=== PATIENT | female | born 1995 | race Two or more races ===

== ENCOUNTER 2016-07-29 09:15 | Observation (INO) | payer MEDICAID ==
[~2016-07-29 09:15] MED LIST: PREN-96 PO
== END 2016-07-29 10:40 | disposition home or self-care (01) | DRG 566 ==
LOC: LDRP 09:15
PROVIDERS: ADMIT Specialist; ATTEND Specialist
DX: O26.893 Other specified pregnancy related conditions, third trimester (principal); N89.8 Other specified noninflammatory disorders of vagina; Z3A.37 37 weeks gestation of pregnancy
CPT/HCPCS: 59025; 81002; G0378

== ENCOUNTER → 2016-08-08 | Outpatient (CLI) | payer MEDICAID | END | disposition home or self-care (01) | LOC: LAB 11:37 | PROVIDERS: ATTEND Specialist | DX: Z34.80 Encounter for supervision of other normal pregnancy, unspecified trimester (principal) | CPT/HCPCS: G0434 ==

== ENCOUNTER 2016-08-17 08:15 | Observation (INO) | payer MEDICAID ==
[2016-08-17 09:51] LABS: Urine Bilirubin Negative (Negative); Urine Blood Negative /uL (Negative); Urine Color Yellow (Yellow); Urine Glucose Normal (Normal); Urine Ketone Negative (Negative); Urine Nitrite Negative (Negative); Urine RBC 2 /hpf (0 - 4); Urine Squamous Epithelial Cell FEW /hpf (<5); Urine Urobilinogen Normal (Negative); Urine pH 7.5 (5.0-8.0)
== END 2016-08-17 10:50 | disposition home or self-care (01) | DRG 566 ==
LOC: LDRP 08:15
PROVIDERS: ADMIT Obstetrics & Gynecology; ATTEND Obstetrics & Gynecology
DX: O62.9 Abnormality of forces of labor, unspecified (principal); O48.0 Post-term pregnancy; Z3A.40 40 weeks gestation of pregnancy
CPT/HCPCS: 59025; 76818; 81001; 81002; G0378

== ENCOUNTER 2018-11-24 18:48 | Emergency (ER) | payer MEDICAID ==
[~2018-11-24] VITALS: Ht 154.9 cm; Wt 65.8 kg
[2018-11-24 19:04] VITALS: BP 127/61
[2018-11-24 19:37] LABS: Basophils # (auto) 0 uL; Basophils % (auto) 0.3 % (0.0-2.0); Eosinophils # (auto) 0 uL; Eosinophils % (auto) 0.4 % (0.0-7.0); Hematocrit 42.9 % (36.0-46.0); Hemoglobin 14.5 g/dL (12.2-16.2); Lymphocytes # (auto) 1.1 uL; Lymphocytes % (auto) 9.4 % (10.0-50.0); Mean Corpuscular Hemoglobin 29.9 pg (28.0-32.0); Mean Corpuscular Hgb Conc. 33.9 g/dL (32.0-36.0); Mean Corpuscular Volume 88.2 fL (80.0-100.0); Monocytes # (auto) 0.4 uL; Monocytes % (auto) 3.6 % (0.0-12.0); Neutrophils # (auto) 9.8 uL; Neutrophils % (auto) 86.3 % (37.0-80.0); Platelet Count (auto) 284 10^3/uL (140-450); Red Blood Cells 4.86 10^6/uL (4.0-5.20); White Blood Cell 11.4 10^3/uL (4.4-10.8)
[2018-11-24 19:56] LABS: Albumin 3.4 g/dL (3.4-5.0); BUN/Creatinine Ratio 13.2; Calcium 8.4 mg/dL (8.5-10.1); Potassium 3.5 mmol/L (3.5-5.1)
[2018-11-24 19:59] LABS: Bilirubin, Total 0.4 mg/dL (0.2-1.0); Total Protein 7.6 g/dL (6.4-8.2)
[2018-11-24 20:32] LABS: Urine Bacteria NONE SEEN /hpf (None Seen); Urine Blood Negative /uL (Negative); Urine Mucus FEW (None Seen); Urine Specific Gravity 1.032 (1.001-1.035); Urine WBC 5 /hpf (0 - 5)
== END 2018-11-24 23:54 | disposition left against medical advice (07) ==
LOC: ER 18:48
DX: O46.91 Antepartum hemorrhage, unspecified, first trimester (principal); Z3A.10 10 weeks gestation of pregnancy; Z53.21 Procedure and treatment not carried out due to patient leaving prior to being seen by health care provider
CPT/HCPCS: 36415; 76801; 80053; 81001; 84702; 85025

== ENCOUNTER 2019-05-15 11:23 | Observation (INO) | payer MEDICAID | END 2019-05-15 12:43 | disposition home or self-care (01) | DRG 566 | LOC: LDRP 11:23 | PROVIDERS: ADMIT Specialist; ATTEND Specialist | DX: O36.8190 Decreased fetal movements, unspecified trimester, not applicable or unspecified (principal); Z3A.35 35 weeks gestation of pregnancy | CPT/HCPCS: 59025; 81002; G0378 ==

== ENCOUNTER 2019-06-15 00:10 | Inpatient (IN) | payer MEDICAID ==
[~2019-06-15] VITALS: Ht 162.6 cm; Wt 74.8 kg
[2019-06-15] MEDS ORDERED: LACT. RINGERS/OXYTOCIN 20UNITS 1,000 ML IV SCH ×2 (00:57→11:25)
[2019-06-15] MEDS ORDERED: METHYLERGONOVINE MALEATE 0.2 MG/ML AMP IM PRN (01:00)
[2019-06-15] MEDS ORDERED: PHISODERM TOP SOLN 240ML BTL TOP PRN (01:00)
[2019-06-15] MEDS ORDERED: LIDOCAINE 2%HCL (LOCAL ANESTH.) INJ 20ML MDV ID ONE (01:00)
[2019-06-15] MEDS ORDERED: NALBUPHINE HCL 10 MG/1ml INJECTION IV PRN (01:00)
[2019-06-15 01:18] LABS: Urine Bacteria NONE SEEN /hpf (None Seen); Urine Blood Negative /uL (Negative); Urine Hyaline Cast FEW /lpf (0 - 2); Urine Mucus FEW (None Seen); Urine Specific Gravity 1.016 (1.001-1.035); Urine WBC 12 /hpf (0 - 5)
[2019-06-15 01:35] LABS: Basophils # (auto) 0 uL; Basophils % (auto) 0.4 % (0.0-2.0); Eosinophils # (auto) 0 uL; Eosinophils % (auto) 0.6 % (0.0-7.0); Hematocrit 38.7 % (36.0-46.0); Hemoglobin 13.3 g/dL (12.2-16.2); Lymphocytes # (auto) 1.8 uL; Lymphocytes % (auto) 23.9 % (10.0-50.0); Mean Corpuscular Hemoglobin 29.9 pg (28.0-32.0); Mean Corpuscular Hgb Conc. 34.4 g/dL (32.0-36.0); Monocytes # (auto) 0.5 uL; Monocytes % (auto) 6.6 % (0.0-12.0); Neutrophils # (auto) 5.3 uL; Neutrophils % (auto) 68.5 % (37.0-80.0); Nucleated Red Blood Cells % 0.1 %; Platelet Count (auto) 203 10^3/uL (140-450); Red Blood Cells 4.46 10^6/uL (4.0-5.20); Red Cell Distribution Width 13.9 % (11.8-14.3); White Blood Cell 7.7 10^3/uL (4.4-10.8)
[2019-06-15 01:35] LABS: Alcohol, Urine < 3.0 mg/dL (0-5); Amphetamine Screen, Urine NEGATIVE (NEGATIVE); Barbiturate Scree,Urine NEGATIVE (NEGATIVE); Benzodiazephine Screen, Urine NEGATIVE (NEGATIVE); Cannabinoid Screen, Urine NEGATIVE (NEGATIVE); Cocaine Screen, Urine NEGATIVE (NEGATIVE); Opiate Scree,Urine NEGATIVE (NEGATIVE); Phencyclidine Screen, Urine NEGATIVE (NEGATIVE)
[2019-06-15 01:50] LABS: INR 0.91 (0.9-1.15); Partial Thromboplastin Time 25.7 sec (23.64-32.05)
[2019-06-15 02:03] LABS: Albumin 2.7 g/dL (3.4-5.0); BUN/Creatinine Ratio 15.7; Calcium 8.5 mg/dL (8.5-10.1)
[2019-06-15 02:06] LABS: Bilirubin, Total 0.3 mg/dL (0.2-1.0); Total Protein 6.8 g/dL (6.4-8.2)
[2019-06-15] MEDS ORDERED: CARBOPROST TROMETHAMINE 250 MCG/1ML VIAL IM ONE (02:37)
[2019-06-15] MEDS ORDERED: LACTATED RINGER'S 1,000 ML IV ONE (06:06)
[2019-06-15] MEDS: WITCH HAZEL-GLYCERIN PAD TOP PRN (06:11)
[2019-06-15] MEDS: DERMOPLAST 60ML BOTTLE TOP PRN (06:11)
[2019-06-15] MEDS: LACTATED RINGER'S 1,000 ML IV SCH ×3 (06:13→12:27)
[2019-06-15] MEDS ORDERED: fentaNYL W ROPIVACAINE 150 ML EPI SCH (06:15)
[2019-06-15] MEDS ORDERED: NALOXONE HCL 0.4 MG/ML VIAL IV ONE (06:15)
[2019-06-15] MEDS ORDERED: ePHEDrine SULFATE 50 MG/ML AMP IV ONE (06:15)
[2019-06-15] MEDS ORDERED: ePHEDrine SULFATE 50 MG/ML AMP ONE (06:23)
[2019-06-15] MEDS ORDERED: LIDOCAINE HCL 2 %PF INJ 10ML AMP IJ ONE ×2 (06:57→08:45)
[2019-06-15] MEDS ORDERED: TERBUTALINE SULFATE 1 MG/ML 1ML VIAL SC ONE (11:30)
[2019-06-15] MEDS ORDERED: ceFAZolin 1GM 2 GM in D5W 5% 100 ML IV ONE (15:30)
[2019-06-15] MEDS ORDERED: AMPICILLIN SOD 1 GM VL ONE ×2 (15:41→15:46)
[2019-06-15] MEDS: ACETAMINOPHEN 325 MG TAB PO PRN (15:44)
[2019-06-15] MEDS ORDERED: ACETAMINOPHEN 325 MG TAB PO PRN (16:30)
[2019-06-15 18:45] VITALS: BP 102/51
[2019-06-15] MEDS: IBUPROFEN 600 MG TAB PO PRN (20:54)
[2019-06-15] MEDS ORDERED: ceFAZolin 1GM/50ML 50 ML IV SCH (22:00)
[2019-06-15 23:00] VITALS: BP 92/51
[2019-06-16] MEDS: ceFAZolin 1GM/50ML 50 ML IV SCH ×3 (01:06→16:34)
[2019-06-16] MEDS: ACETAMINOPHEN 325 MG TAB PO PRN ×4 (01:15→20:11)
[2019-06-16 03:10] VITALS: BP 102/57
[2019-06-16 07:15] VITALS: BP 111/56
[2019-06-16] MEDS: WITCH HAZEL-GLYCERIN PAD TOP PRN (09:23)
[2019-06-16] MEDS: DERMOPLAST 60ML BOTTLE TOP PRN (09:23)
[2019-06-16] MEDS ORDERED: DOCUSATE CALCIUM 240 MG CAP PO SCH (10:00)
[2019-06-16 11:20] VITALS: BP 108/59
[2019-06-16 15:13] VITALS: BP 107/55
[2019-06-16 19:30] VITALS: BP 112/60
[2019-06-16 22:00] VITALS: BP 109/56
[2019-06-16] MEDS: IBUPROFEN 600 MG TAB PO PRN (23:59)
[2019-06-17 03:30] VITALS: BP 90/55
[2019-06-17 07:08] VITALS: BP 118/68
== END 2019-06-17 09:05 | disposition home or self-care (01) | DRG 560 ==
LOC: LDRP 00:10 → OBSVTOIN 00:45
PROVIDERS: ADMIT Obstetrics & Gynecology; ATTEND Obstetrics & Gynecology
PROC: 10E0XZZ Delivery of Products of Conception, External Approach (ICD-10-PCS; principal; 2019-06-15)
PROC: 0KQM0ZZ Repair Perineum Muscle, Open Approach (ICD-10-PCS; 2019-06-15)
PROC: 3E0R3BZ Introduction of Anesthetic Agent into Spinal Canal, Percutaneous Approach (ICD-10-PCS; 2019-06-15)
PROC: 00HU33Z Insertion of Infusion Device into Spinal Canal, Percutaneous Approach (ICD-10-PCS; 2019-06-15)
DX: O70.1 Second degree perineal laceration during delivery (principal); Z37.0 Single live birth; Z3A.39 39 weeks gestation of pregnancy
CPT/HCPCS: 36415; 51702; 59025; 59409; 62282; 76815; 80053; 80307; 81001; 81002; 84112; 85025; 85610; 85730; 86592; 86850; 86900; 86901; 94760; 96361; 96366; G0378; J0690; J2590; J3010; J7060

== ENCOUNTER 2020-01-29 11:17 | Emergency (ER) | payer MEDICAID ==
[~2020-01-29] VITALS: Ht 154.9 cm; Wt 74.8 kg
[2020-01-29 11:32] VITALS: BP 135/82
[2020-01-29 11:59] LABS: Urine Bacteria NONE SEEN /hpf (None Seen); Urine Blood 3+ /uL (Negative); Urine Hyaline Cast FEW /lpf (0 - 2); Urine Mucus FEW (None Seen); Urine WBC 19 /hpf (0 - 5)
[2020-01-29 12:06] LABS: Basophils # (auto) 0.1 10 ^3/uL (0-0.2); Basophils % (auto) 0.8 % (0.0-2.0); Eosinophils # (auto) 0.1 10 ^3/uL (0-0.8); Eosinophils % (auto) 1.8 % (0.0-7.0); Hematocrit 43.9 % (36.0-46.0); Hemoglobin 14.6 g/dL (12.2-16.2); Lymphocytes # (auto) 1.9 10 ^3/uL (0.4-5.4); Lymphocytes % (auto) 27.4 % (10.0-50.0); Mean Corpuscular Hemoglobin 29.9 pg (28.0-32.0); Mean Corpuscular Hgb Conc. 33.3 g/dL (32.0-36.0); Mean Corpuscular Volume 89.9 fL (80.0-100.0); Monocytes # (auto) 0.4 10 ^3/uL (0-1.3); Monocytes % (auto) 5.6 % (0.0-12.0); Neutrophils # (auto) 4.5 10 ^3/uL (1.6-8.6); Neutrophils % (auto) 64.4 % (37.0-80.0); Nucleated Red Blood Cells % 0.1 %; Platelet Count (auto) 308 10^3/uL (140-450); Red Blood Cells 4.88 10^6/uL (4.0-5.20)
[2020-01-29 12:27] LABS: Albumin 3.8 g/dL (3.4-5.0); Anion Gap 7 (5-15); Blood Urea Nitrogen 9 mg/dL (7-18); Calcium 8.6 mg/dL (8.5-10.1); Carbon Dioxide 22 mmol/L (21-32); Chloride 110 mmol/L (98-107); Glucose 81 mg/dL (74-106); Potassium 4.1 mmol/L (3.5-5.1); Sodium 139 mmol/L (136-145)
[2020-01-29 12:32] LABS: Alanine Aminotransferase 20 U/L (13-56); Alkaline Phosphatase 97 U/L (45-117); Aspartate Aminotransferase 12 U/L (15-37); BUN/Creatinine Ratio 14.1; Bilirubin, Total 0.4 mg/dL (0.2-1.0); GFR African American 147 mL/min; GFR Non-African American 121 mL/min; Total Protein 8.1 g/dL (6.4-8.2)
== END 2020-01-29 15:45 | disposition left against medical advice (07) ==
LOC: ER 11:17
DX: R07.89 Other chest pain (principal); Z53.21 Procedure and treatment not carried out due to patient leaving prior to being seen by health care provider
CPT/HCPCS: 36415; 71046; 80053; 81001; 84484; 85025; 93005

== ENCOUNTER → 2021-08-24 | Outpatient (CLI) | payer MEDICAID ==
[2021-08-24 10:28] LABS: Basophils # (auto) 0 10 ^3/uL (0-0.2); Basophils % (auto) 0.5 % (0.0-2.0); Eosinophils # (auto) 0.1 10 ^3/uL (0-0.8); Eosinophils % (auto) 1.8 % (0.0-7.0); Hematocrit 39.4 % (36.0-46.0); Hemoglobin 13.5 g/dL (12.2-16.2); Lymphocytes # (auto) 1.7 10 ^3/uL (0.4-5.4); Lymphocytes % (auto) 26.5 % (10.0-50.0); Mean Corpuscular Hemoglobin 29.2 pg (28.0-32.0); Mean Corpuscular Hgb Conc. 34.3 g/dL (32.0-36.0); Mean Corpuscular Volume 85.2 fL (80.0-100.0); Monocytes # (auto) 0.5 10 ^3/uL (0-1.3); Monocytes % (auto) 7.7 % (0.0-12.0); Neutrophils % (auto) 63.5 % (37.0-80.0); Red Blood Cells 4.63 10^6/uL (4.0-5.20); Red Cell Distribution Width 15.2 % (11.8-14.3); White Blood Cell 6.3 10^3/uL (4.4-10.8)
[2021-08-24 10:44] LABS: Alcohol, Urine < 3.0 mg/dL (0-10); Amphetamine Screen, Urine NEGATIVE (NEGATIVE); Barbiturate Scree,Urine NEGATIVE (NEGATIVE); Benzodiazephine Screen, Urine NEGATIVE (NEGATIVE); Cannabinoid Screen, Urine POSITIVE (NEGATIVE); Cocaine Screen, Urine NEGATIVE (NEGATIVE); Opiate Scree,Urine NEGATIVE (NEGATIVE); Phencyclidine Screen, Urine NEGATIVE (NEGATIVE)
[2021-08-25 08:06] LABS: RPR Non Reactive (Non Reactive)
== END | disposition home or self-care (01) ==
LOC: LAB 09:09
PROVIDERS: ATTEND Obstetrics & Gynecology
DX: Z34.80 Encounter for supervision of other normal pregnancy, unspecified trimester (principal); Z31.430 Encounter of female for testing for genetic disease carrier status for procreative management; N39.0 Urinary tract infection, site not specified
CPT/HCPCS: 36415; 80307; 83036; 84112; 84144; 84702; 85025; 86592; 86703; 86762; 86850; 86900; 86901; 87086; 87340

== ENCOUNTER 2022-02-05 23:13 | Observation (INO) | payer MEDICAID ==
[~2022-02-05] VITALS: Ht 154.9 cm; Wt 72.1 kg
[2022-02-06 00:02] LABS: Urine Bacteria FEW /hpf (None Seen); Urine Blood Negative /uL (Negative); Urine Specific Gravity 1.001 (1.001-1.035); Urine WBC 2 /hpf (0 - 5)
[2022-02-06 00:10] LABS: Alcohol, Urine < 3.0 mg/dL (0-10); Amphetamine Screen, Urine NEGATIVE (NEGATIVE); Barbiturate Scree,Urine NEGATIVE (NEGATIVE); Benzodiazephine Screen, Urine NEGATIVE (NEGATIVE); Cannabinoid Screen, Urine NEGATIVE (NEGATIVE); Cocaine Screen, Urine NEGATIVE (NEGATIVE); Opiate Scree,Urine NEGATIVE (NEGATIVE); Phencyclidine Screen, Urine NEGATIVE (NEGATIVE)
== END 2022-02-06 01:11 | disposition home or self-care (01) ==
LOC: LDRP 23:13
PROVIDERS: ADMIT Obstetrics & Gynecology Obstetrics; ATTEND Obstetrics & Gynecology Obstetrics
DX: O62.9 Abnormality of forces of labor, unspecified (principal); Z3A.29 29 weeks gestation of pregnancy; Z79.899 Other long term (current) drug therapy
CPT/HCPCS: 59025; 80307; 81001; G0378

== ENCOUNTER 2022-04-03 07:27 | Inpatient (IN) | payer MEDICAID ==
[~2022-04-03] VITALS: Ht 157.5 cm; Wt 75.7 kg
[2022-04-03] MEDS ORDERED: DERMOPLAST 60ML BOTTLE TOP PRN (08:15)
[2022-04-03] MEDS ORDERED: PHISODERM TOP SOLN 240ML BTL TOP PRN (08:15)
[2022-04-03] MEDS ORDERED: WITCH HAZEL-GLYCERIN PAD TOP PRN (08:15)
[2022-04-03] MEDS ORDERED: LIDOCAINE 2%HCL (LOCAL ANESTH.) INJ 10ml MDV IJ PRN (08:15)
[2022-04-03] MEDS ORDERED: BUTORPHANOL TARTRATE 2 MG/1 ML VIAL IV PRN ×2 (08:15)
[2022-04-03] MEDS ORDERED: LACTATED RINGER'S 1,000 ML IV SCH (08:15)
[2022-04-03] MEDS ORDERED: PENICILLIN G POT 5MIL/D5 50ML 50 ML IV ONE ×2 (08:15→08:27)
[2022-04-03] MEDS ORDERED: PROMETHAZINE HCL 25 MG/ML 1ML IV PRN (08:15)
[2022-04-03 09:09] LABS: Barbiturate Scree,Urine NEGATIVE (NEGATIVE)
[2022-04-03 09:10] LABS: Basophils # (auto) 0.1 10 ^3/uL (0-0.2); Basophils % (auto) 0.6 % (0.0-2.0); Eosinophils # (auto) 0 10 ^3/uL (0-0.8); Eosinophils % (auto) 0.3 % (0.0-7.0); Hematocrit 38.2 % (36.0-46.0); Hemoglobin 12.8 g/dL (12.2-16.2); Lymphocytes # (auto) 1.5 10 ^3/uL (0.4-5.4); Lymphocytes % (auto) 14.2 % (10.0-50.0); Mean Corpuscular Hemoglobin 28.9 pg (28.0-32.0); Mean Corpuscular Hgb Conc. 33.6 g/dL (32.0-36.0); Mean Corpuscular Volume 86.2 fL (80.0-100.0); Monocytes # (auto) 0.5 10 ^3/uL (0-1.3); Monocytes % (auto) 4.4 % (0.0-12.0); Neutrophils # (auto) 8.5 10 ^3/uL (1.6-8.6); Neutrophils % (auto) 80.5 % (37.0-80.0); Red Blood Cells 4.43 10^6/uL (4.0-5.20); Red Cell Distribution Width 13.4 % (11.8-14.3); White Blood Cell 10.6 10^3/uL (4.4-10.8)
[2022-04-03 09:10] LABS: Urine Bacteria NONE SEEN /hpf (None Seen); Urine Blood 3+ /uL (Negative); Urine Specific Gravity 1.015 (1.001-1.035); Urine WBC 5 /hpf (0 - 5)
[2022-04-03 09:11] LABS: Alcohol, Urine < 3.0 mg/dL (0-10); Amphetamine Screen, Urine NEGATIVE (NEGATIVE); Benzodiazephine Screen, Urine NEGATIVE (NEGATIVE); Cannabinoid Screen, Urine NEGATIVE (NEGATIVE); Cocaine Screen, Urine NEGATIVE (NEGATIVE); Opiate Scree,Urine NEGATIVE (NEGATIVE); Phencyclidine Screen, Urine NEGATIVE (NEGATIVE)
[2022-04-03 09:17] LABS: Albumin 2.8 g/dL (3.4-5.0); BUN/Creatinine Ratio 18.2; Calcium 8.1 mg/dL (8.5-10.1); Potassium 3.8 mmol/L (3.5-5.1)
[2022-04-03 09:20] LABS: Bilirubin, Total 0.2 mg/dL (0.2-1.0)
[2022-04-03 09:38] LABS: INR 0.89 (0.9-1.15); Partial Thromboplastin Time 27.1 sec (24.6-33.4)
[2022-04-03] MEDS ORDERED: LIDOCAINE HCL 2 %PF INJ 10ML AMP IJ ONE (09:45)
[2022-04-03] MEDS ORDERED: ROPIVACAINE HCL 200 ML EPI SCH (09:45)
[2022-04-03] MEDS ORDERED: LACT. RINGERS/OXYTOCIN 20UNITS 500 ML IV ONE ×2 (09:45→10:15)
[2022-04-03] MEDS ORDERED: LACTATED RINGER'S 1,000 ML IV ONE (09:45)
[2022-04-03] MEDS ORDERED: ePHEDrine SULFATE 50 MG/ML AMP IV ONE (09:45)
[2022-04-03] MEDS ORDERED: LIDOCAINE 2%HCL (LOCAL ANESTH.) INJ 20ML MDV ONE (09:50)
[2022-04-03] MEDS ORDERED: LIDOCAINE 2% (LOCAL ANESTH.) PF 5ml SDV ONE (10:08)
[2022-04-03] MEDS ORDERED: PENICILLIN G POTASSIUM 2,500,000 UNITS in D5W 5% 50 ML IV SCH (13:00)
[2022-04-03] MEDS: IBUPROFEN 600 MG TAB PO PRN (15:51)
[2022-04-03 18:52] VITALS: BP 103/51
[2022-04-03 22:03] VITALS: BP 92/50
[2022-04-03] MEDS: ACETAMINOPHEN 325 MG TAB PO PRN (22:13)
[2022-04-03 22:30] VITALS: BP 106/53
[2022-04-04 03:30] VITALS: BP 111/56
[2022-04-04] MEDS: IBUPROFEN 600 MG TAB PO PRN (03:44)
[2022-04-04 07:00] VITALS: BP 115/65
[2022-04-04] MEDS: ACETAMINOPHEN 325 MG TAB PO PRN (07:47)
[2022-04-04 11:00] VITALS: BP 98/54
[2022-04-04 15:24] VITALS: BP 106/60
[2022-04-04] MEDS ORDERED: TETANUS-DIPTH-ACEL PERTUSSIS 0.5ML SYR Tdap IM ONE (15:45)
[2022-04-05 08:06] LABS: RPR Non Reactive (Non Reactive)
== END 2022-04-04 17:55 | disposition home or self-care (01) | DRG 560 ==
LOC: LDRP 07:27 → OBSVTOIN 08:11 → LDRP 10:12
PROVIDERS: ADMIT Obstetrics & Gynecology; ATTEND Obstetrics & Gynecology
PROC: 10E0XZZ Delivery of Products of Conception, External Approach (ICD-10-PCS; principal; 2022-04-03)
PROC: 3E0R3BZ Introduction of Anesthetic Agent into Spinal Canal, Percutaneous Approach (ICD-10-PCS; 2022-04-03)
PROC: 00HU33Z Insertion of Infusion Device into Spinal Canal, Percutaneous Approach (ICD-10-PCS; 2022-04-03)
PROC: 3E0234Z Introduction of Serum, Toxoid and Vaccine into Muscle, Percutaneous Approach (ICD-10-PCS; 2022-04-04)
DX: O99.824 Streptococcus B carrier state complicating childbirth (principal); Z37.0 Single live birth; Z20.822 Contact with and (suspected) exposure to COVID-19; Z3A.38 38 weeks gestation of pregnancy
CPT/HCPCS: 36415; 59025; 59409; 62282; 80053; 80307; 81001; 81002; 85025; 85610; 85730; 86592; 86850; 86900; 86901; 90715; 94760; 96360; 96361; 96365; 96366; 96372; G0378; J2001; J2540; J2590; J7060

== ENCOUNTER 2022-07-21 08:47 | Emergency (ER) | payer MEDICAID | END 2022-07-21 08:51 | disposition left against medical advice (07) | LOC: ER 08:48 | DX: J02.9 Acute pharyngitis, unspecified (principal); Z53.21 Procedure and treatment not carried out due to patient leaving prior to being seen by health care provider ==

== ENCOUNTER 2022-11-25 14:41 | Emergency (ER) | payer MEDICAID ==
[~2022-11-25] VITALS: Ht 154.9 cm; Wt 79.0 kg
[2022-11-25] MEDS ORDERED: HYDROcodone-ACET 5/325MG TAB PO ONE (16:00)
[2022-11-25 16:31] VITALS: BP 118/69
[2022-11-25] MEDS ORDERED: AUG875T PO (17:41)
[2022-11-25] MEDS ORDERED: IBUP800T27 PO (17:41)
== END 2022-11-25 17:58 | disposition home or self-care (01) ==
LOC: ER 14:41
DX: S00.03XA Contusion of scalp, initial encounter (principal); S00.11XA Contusion of right eyelid and periocular area, initial encounter; S71.152A Open bite, left thigh, initial encounter; S81.852A Open bite, left lower leg, initial encounter; Y04.0XXA Assault by unarmed brawl or fight, initial encounter; Y04.1XXA Assault by human bite, initial encounter; Y93.89 Activity, other specified; Y92.89 Other specified places as the place of occurrence of the external cause; Y99.8 Other external cause status
CPT/HCPCS: 70450; 70486

== ENCOUNTER 2022-12-29 20:46 | Emergency (ER) | payer MEDICAID ==
[~2022-12-29] VITALS: Ht 154.9 cm; Wt 77.7 kg
[~2022-12-29 20:46] MED LIST changes: +AUG875T PO; +IBUP-1456 PO
[2022-12-29 20:54] VITALS: BP 147/73
[2022-12-29 21:20] LABS: Basophils # (auto) 0 10 ^3/uL (0-0.2); Basophils % (auto) 0.6 % (0.0-2.0); Eosinophils # (auto) 0.1 10 ^3/uL (0-0.8); Eosinophils % (auto) 1.1 % (0.0-7.0); Hematocrit 40.3 % (36.0-46.0); Hemoglobin 13.8 g/dL (12.2-16.2); Lymphocytes # (auto) 2.3 10 ^3/uL (0.4-5.4); Lymphocytes % (auto) 30.4 % (10.0-50.0); Mean Corpuscular Hemoglobin 29.5 pg (28.0-32.0); Mean Corpuscular Hgb Conc. 34.2 g/dL (32.0-36.0); Mean Corpuscular Volume 86.3 fL (80.0-100.0); Monocytes # (auto) 0.4 10 ^3/uL (0-1.3); Monocytes % (auto) 5.5 % (0.0-12.0); Neutrophils # (auto) 4.8 10 ^3/uL (1.6-8.6); Neutrophils % (auto) 62.4 % (37.0-80.0); Nucleated Red Blood Cells % 0.2 %; Red Blood Cells 4.67 10^6/uL (4.0-5.20); Red Cell Distribution Width 13.6 % (11.8-14.3); White Blood Cell 7.6 10^3/uL (4.4-10.8)
[2022-12-29 21:36] LABS: INR 0.94 (0.9-1.15); Partial Thromboplastin Time 28.8 sec (24.6-33.4)
[2022-12-29 21:49] LABS: Albumin 3.7 g/dL (3.4-5.0); Calcium 8.5 mg/dL (8.5-10.1); Magnesium 2.3 mg/dL (1.6-2.6); Potassium 3.7 mmol/L (3.5-5.1)
[2022-12-29 21:53] LABS: BUN/Creatinine Ratio 13.3 (10.0-20.0); Bilirubin, Total 0.2 mg/dL (0.2-1.0); Total Protein 7.8 g/dL (6.4-8.2)
== END 2022-12-30 02:24 | disposition home or self-care (01) ==
LOC: ER 20:48
DX: R07.89 Other chest pain (principal); F41.9 Anxiety disorder, unspecified; E66.01 Morbid (severe) obesity due to excess calories; Z88.1 Allergy status to other antibiotic agents; Z88.6 Allergy status to analgesic agent; Z68.32 Body mass index [BMI] 32.0-32.9, adult; Z79.899 Other long term (current) drug therapy
CPT/HCPCS: 36415; 71045; 80053; 83735; 83880; 84484; 85025; 85610; 85730; 93005

== ENCOUNTER 2023-04-23 04:44 | Emergency (ER) | payer MEDICAID ==
[~2023-04-23] VITALS: Ht 162.6 cm; Wt 80.0 kg
[2023-04-23 05:33] VITALS: TEMP 98.5
[2023-04-23 05:34] VITALS: PULSE 84; RESP 21; O2SAT 95
[2023-04-23] MEDS ORDERED: ONDANSETRON HCL 4 MG/2 ML VIAL IV ONE (06:45)
[2023-04-23] MEDS ORDERED: HYDROmorphone HCL 2 MG/ML VL/or syr IV ONE (06:45)
[2023-04-23 07:35] LABS: Basophils # (auto) 0 10 ^3/uL (0-0.2); Basophils % (auto) 0.1 % (0.0-2.0); Eosinophils # (auto) 0 10 ^3/uL (0-0.8); Eosinophils % (auto) 0.1 % (0.0-7.0); Hematocrit 42.3 % (36.0-46.0); Hemoglobin 13.8 g/dL (12.2-16.2); Lymphocytes # (auto) 1.2 10 ^3/uL (0.4-5.4); Lymphocytes % (auto) 9.7 % (10.0-50.0); Mean Corpuscular Hemoglobin 27.8 pg (28.0-32.0); Mean Corpuscular Hgb Conc. 32.5 g/dL (32.0-36.0); Mean Corpuscular Volume 85.7 fL (80.0-100.0); Monocytes # (auto) 0.4 10 ^3/uL (0-1.3); Neutrophils % (auto) 87.1 % (37.0-80.0); Red Blood Cells 4.94 10^6/uL (4.0-5.20); Red Cell Distribution Width 14.2 % (11.8-14.3); White Blood Cell 12.6 10^3/uL (4.4-10.8)
[2023-04-23 07:48] LABS: INR 0.97 (0.9-1.15); Partial Thromboplastin Time 25.9 SEC (24.5-34.5); Prothrombin Time 10.2 sec (9.3-11.8)
[2023-04-23 08:07] VITALS: PULSE 88; RESP 16; O2SAT 96
[2023-04-23 08:15] VITALS: BP 106/72; PULSE 88; RESP 16; O2SAT 96
[2023-04-23] MEDS ORDERED: HYDR-4798 PO (08:34)
[2023-04-23 08:51] LABS: Urine Bacteria FEW /hpf (None Seen); Urine Blood Negative /uL (Negative); Urine Clarity HAZY (Clear); Urine Protein, UAD TRACE (Negative); Urine Specific Gravity 1.019 (1.001-1.035); Urine Urobilinogen Normal (Negative); Urine WBC 9 /hpf (0 - 5); Urine pH 5.5 (5.0-8.0)
[2023-04-23 08:52] LABS: Urine Color Straw (Yellow)
[2023-04-23 08:52] LABS: Alanine Aminotransferase 17 U/L (7-40); Albumin 4.6 g/dL (3.2-4.8); Alkaline Phosphatase 89 U/L (46-116); Anion Gap 8 (5-15); Aspartate Aminotransferase 15 U/L (13-40); BUN/Creatinine Ratio 9.7 (10.0-20.0); Bilirubin, Total 0.3 mg/dL (0.2-1.0); Blood Alcohol 168.6 mg/dL (<10); Blood Urea Nitrogen 7 mg/dL (9-23); Calcium 8.7 mg/dL (8.7-10.4); Carbon Dioxide 24 mmol/L (20-30); Chloride 111 mmol/L (98-107); Glucose 102 mg/dL (74-106); Sodium 143 mmol/L (136-145)
[2023-04-23 08:53] LABS: Total Protein 7.5 g/dL (5.7-8.2)
[2023-04-23] MEDS ORDERED: PERCOT PO (17:35)
[2023-04-23] MEDS ORDERED: IBUP-1455 PO (17:35)
== END 2023-04-23 09:01 | disposition home or self-care (01) ==
LOC: EDBD 04:44 → ER 04:44
DX: S82.51XA Displaced fracture of medial malleolus of right tibia, initial encounter for closed fracture (principal); S82.61XA Displaced fracture of lateral malleolus of right fibula, initial encounter for closed fracture; Z79.1 Long term (current) use of non-steroidal anti-inflammatories (NSAID); Z79.2 Long term (current) use of antibiotics; V89.2XXA Person injured in unspecified motor-vehicle accident, traffic, initial encounter; Y93.89 Activity, other specified; Y92.89 Other specified places as the place of occurrence of the external cause; Y99.8 Other external cause status
CPT/HCPCS: 29515; 36415; 72170; 73590; 73610; 80053; 80320; 81001; 85025; 85610; 85730; 96374; 96375; 99285; J1170; J2405